=== PATIENT | male | born 2000 | race African-American/Black ===

== ENCOUNTER 2020-04-12 11:19 | Emergency (ER) | payer MEDICAID ==
[~2020-04-12] VITALS: Ht 185.4 cm; Wt 77.1 kg
[2020-04-12 14:20] VITALS: BP 126/76
== END 2020-04-12 14:21 | disposition home or self-care (01) ==
LOC: ER 11:19
DX: M79.641 Pain in right hand (principal)
CPT/HCPCS: 73130